=== PATIENT | male | born 1955 | race African-American/Black ===

== ENCOUNTER 2020-04-23 10:11 | Inpatient (IN) | payer OTHER ==
[2020-04-23 10:56] LABS: #Basophils 0.1 thou/uL (0.0-0.2); #Eosinphils 0.1 thou/uL (0.0-0.7); #Lymphocytes 1.3 thou/uL (1.20-3.40); #Monocytes 0.4 thou/uL (0.11-0.59); #Neutrophils 2.7 thou/uL (1.40-6.50); %Basophils 2.4 % (0.0-1.0); %Eosinophils 1.3 % (0.0-10.0); %Lymphocytes 27.8 % (21.0-51.0); %Neutrophils 59.5 % (42.0-75.0); Mean Corpuscular HGB CONC 33.2 g/dL (32.0-36.0); Mean Corpuscular Hemoglobin 31.9 pg (27.0-31.0); Mean Platelet Volume 8.2 fL (7.4-10.4); Platelet Count 210 thou/uL (130-400); RBC Distribution Width 12.9 % (11.5-14.5); Red Blood Cell (RBC) Count 4.71 mill/uL (4.70-6.10); White Blood Cell (WBC) Count 4.5 thou/uL (4.8-10.8)
[2020-04-23 11:20] LABS: ALT (SGPT) 16 U/L (8-55); AST (SGOT) 26 U/L (5-34); Albumin 4.3 g/dL (3.4-4.8); Alkaline Phosphatase 46 U/L (40-110); Anion Gap 13 mmol/L (10-20); BUN (Urea Nitrogen) 22 mg/dL (8.4-25.7); Bilirubin, Total 0.6 mg/dL (0.2-1.2); Calc. Creatinine Clearance 0 mL/min (70-130); Carbon Dioxide 24 mmol/L (23-31); Chloride 105 mmol/L (98-107); Globulin 3.1 g/dL (2.4-3.5); Glucose 93 mg/dL (80-115); Potassium 3.9 mmol/L (3.5-5.1); Protein, Total 7.4 g/dL (5.8-8.1); Sodium 138 mmol/L (136-145)
[2020-04-23 11:42] LABS: Amphetamine Not Detected (NotDetected); Barbiturates Screen Not Detected (NotDetected); Benzodiazepine Screen Not Detected (NotDetected); Cocaine Metabolite Screen Detected (NotDetected); Medtox Reader # READER 4; Methadone Not Detected (NotDetected); Methamphetamine Not Detected (NotDetected); Opiate Screen Not Detected (NotDetected); Oxycodone Screen Not Detected (NotDetected); Phencyclidine (PCP) Not Detected (NotDetected); THC/Cannabinoid Screen Not Detected (NotDetected); Tricyclic Screen Not Detected (NotDetected)
[2020-04-23 11:43] LABS: Medtox Control Line Valid? VALID (VALID)
[2020-04-23] MEDS ORDERED: Iopamidol-370 76% 500 ML 1 ML ONE (11:47)
[2020-04-23] MEDS ORDERED: Aspirin Chewable 81 MG TAB ONE (11:52)
[2020-04-23 11:55] LABS: CKMB 6.8 ng/mL (0-6.6)
[2020-04-23] MEDS ORDERED: Acetaminophen 650 MG Suppository PR PRN (11:55)
[2020-04-23] MEDS ORDERED: Acetaminophen 325 MG TAB PO PRN (11:55)
[2020-04-23] MEDS ORDERED: Ondansetron PF 4 MG/2 ML Vial IVP PRN (11:55)
[2020-04-23] MEDS ORDERED: Ondansetron ODT 4 MG TAB PO PRN (11:55)
[2020-04-23] MEDS ORDERED: hydrALAZINE 20 MG/ML VIAL SLOW IVP PRN (11:55)
[2020-04-23 13:03] LABS: Cardiac Risk 4.1 (Less than 4.5)
[2020-04-23 16:52] LABS: Troponin I 0.032 ng/mL (< 0.028)
[2020-04-23 18:17] LABS: CKMB 7.6 ng/mL (0-6.6)
[2020-04-23] MEDS: Lactated Ringer's 1,000 ML IV SCH (18:46)
[2020-04-23] MEDS: Atorvastatin Calcium 40 MG TAB PO SCH (20:30)
[2020-04-23 21:28] LABS: CKMB 8.1 ng/mL (0-6.6)
[2020-04-24] MEDS: Lactated Ringer's 1,000 ML IV SCH ×3 (04:51→15:18)
[2020-04-24 06:02] LABS: Anion Gap 13 mmol/L (10-20); BUN (Urea Nitrogen) 19 mg/dL (8.4-25.7); Calc. Creatinine Clearance 45 mL/min (70-130); Calcium 9.5 mg/dL (7.8-10.44); Carbon Dioxide 23 mmol/L (23-31); Chloride 105 mmol/L (98-107); Glucose 85 mg/dL (80-115); Potassium 3.8 mmol/L (3.5-5.1); Sodium 137 mmol/L (136-145)
[2020-04-24] MEDS: Enoxaparin Sodium 40 MG/0.4 ML SYRINGE SC SCH (08:32)
[2020-04-24] MEDS: Aspirin 81 mg Enteric Coated Tablet PO SCH (08:33)
[2020-04-24] MEDS ORDERED: FLU VACC QS2020-21(6MOS UP)/PF 60 MCG/0.5 ML SYRINGE IM ONE (09:00)
[2020-04-24] MEDS ORDERED: Amlodipine 5 MG TAB PO SCH ×2 (09:00→17:00)
[2020-04-24 09:59] LABS: SARS-CoV-2 PCR by NAA Not Detected (NotDetected)
[2020-04-24 15:30] LABS: CKMB 6.2 ng/mL (0-6.6)
[2020-04-24] MEDS: Atorvastatin Calcium 40 MG TAB PO SCH (20:37)
[2020-04-25] MEDS: Lactated Ringer's 1,000 ML IV SCH ×4 (00:08→19:43)
[2020-04-25 07:16] LABS: Anion Gap 12 mmol/L (10-20); BUN (Urea Nitrogen) 19 mg/dL (8.4-25.7); CK (CPK) 240 U/L (30-200); Calc. Creatinine Clearance 43 mL/min (70-130); Calcium 9.8 mg/dL (7.8-10.44); Carbon Dioxide 27 mmol/L (23-31); Chloride 103 mmol/L (98-107); Glucose 71 mg/dL (80-115); Potassium 3.9 mmol/L (3.5-5.1); Sodium 138 mmol/L (136-145)
[2020-04-25] MEDS: Enoxaparin Sodium 40 MG/0.4 ML SYRINGE SC SCH (09:25)
[2020-04-25] MEDS: Aspirin 81 mg Enteric Coated Tablet PO SCH (09:26)
[2020-04-25] MEDS: Amlodipine 10 MG TAB PO SCH (09:27)
[2020-04-25 11:02] LABS: Creatinine, Urine 60.48 mg/dL (63-166)
[2020-04-25 13:46] VITALS: BMI 18.0
[2020-04-25] MEDS: Atorvastatin Calcium 40 MG TAB PO SCH (20:20)
[2020-04-25] MEDS: Lisinopril 10 MG TAB PO SCH (20:21)
[2020-04-26] MEDS: Lactated Ringer's 1,000 ML IV SCH ×2 (04:15→06:00)
[2020-04-26] MEDS: Amlodipine 10 MG TAB PO SCH (09:52)
[2020-04-26] MEDS: Aspirin 81 mg Enteric Coated Tablet PO SCH (09:52)
[2020-04-26] MEDS: Enoxaparin Sodium 40 MG/0.4 ML SYRINGE SC SCH (09:52)
[2020-04-26 10:09] LABS: Anion Gap 14 mmol/L (10-20); BUN (Urea Nitrogen) 16 mg/dL (8.4-25.7); CK (CPK) 160 U/L (30-200); Calc. Creatinine Clearance 49 mL/min (70-130); Calcium 9.5 mg/dL (7.8-10.44); Carbon Dioxide 24 mmol/L (23-31); Chloride 104 mmol/L (98-107); Glucose 144 mg/dL (80-115); Potassium 3.7 mmol/L (3.5-5.1); Sodium 138 mmol/L (136-145)
[2020-04-26] MEDS: Atorvastatin Calcium 40 MG TAB PO SCH (20:10)
[2020-04-26] MEDS: Lisinopril 10 MG TAB PO SCH (20:10)
[2020-04-27] MEDS: Amlodipine 10 MG TAB PO SCH (08:15)
[2020-04-27] MEDS: Aspirin 81 mg Enteric Coated Tablet PO SCH (08:15)
[2020-04-27] MEDS: Enoxaparin Sodium 40 MG/0.4 ML SYRINGE SC SCH (08:15)
[2020-04-27] MEDS: Lisinopril 10 MG TAB PO SCH (21:20)
[2020-04-27] MEDS: Atorvastatin Calcium 40 MG TAB PO SCH (21:20)
[2020-04-28] MEDS: Aspirin 81 mg Enteric Coated Tablet PO SCH (07:59)
[2020-04-28] MEDS: Amlodipine 10 MG TAB PO SCH (07:59)
[2020-04-28] MEDS: Enoxaparin Sodium 40 MG/0.4 ML SYRINGE SC SCH (07:59)
[2020-04-28] MEDS: Lisinopril 10 MG TAB PO SCH (20:17)
[2020-04-28] MEDS: Atorvastatin Calcium 40 MG TAB PO SCH (20:18)
[2020-04-29] MEDS: Aspirin 81 mg Enteric Coated Tablet PO SCH (08:24)
[2020-04-29] MEDS: Enoxaparin Sodium 40 MG/0.4 ML SYRINGE SC SCH (08:24)
[2020-04-29] MEDS: Amlodipine 10 MG TAB PO SCH (08:24)
[2020-04-29] MEDS: Lisinopril 10 MG TAB PO SCH (20:28)
[2020-04-29] MEDS: Atorvastatin Calcium 40 MG TAB PO SCH (20:29)
[2020-04-30 07:50] VITALS: BP 132/66; TEMP 97.8
[2020-04-30] MEDS: Aspirin 81 mg Enteric Coated Tablet PO SCH (08:07)
[2020-04-30] MEDS: Enoxaparin Sodium 40 MG/0.4 ML SYRINGE SC SCH (08:07)
[2020-04-30] MEDS: Amlodipine 10 MG TAB PO SCH (08:07)
== END 2020-04-30 09:35 | DRG 917 ==
LOC: ERS 10:11 → ERHOLD 11:55 → 2SE 11:55 → OBSVTOIN 04-24 10:19
PROVIDERS: ADMIT Family Medicine; ATTEND Family Medicine
DX: T40.5X1A Poisoning by cocaine, accidental (unintentional), initial encounter (principal); I63.9 Cerebral infarction, unspecified; G81.94 Hemiplegia, unspecified affecting left nondominant side; I24.8 Other forms of acute ischemic heart disease; N17.9 Acute kidney failure, unspecified; Z20.822 Contact with and (suspected) exposure to COVID-19; Z23 Encounter for immunization; R29.703 NIHSS score 3; F14.10 Cocaine abuse, uncomplicated; I10 Essential (primary) hypertension; R29.810 Facial weakness; R47.81 Slurred speech; F17.290 Nicotine dependence, other tobacco product, uncomplicated; Z79.899 Other long term (current) drug therapy; Z71.51 Drug abuse counseling and surveillance of drug abuser
CPT/HCPCS: 36415; 36416; 70450; 70496; 70498; 70551; 80048; 80053; 80061; 80306; 82550; 82553; 82570; 83036; 84300; 84443; 84484; 85025; 86850; 86900; 86901; 87635; 90471; 90662; 90732; 93005; 93306; 95712; 95819; 95957; 96372; G0008; G0009; G0378; J1650; Q9967; U0003; U0005